=== PATIENT | female | born 1945 ===

== ENCOUNTER 2021-12-24 06:15 | Inpatient (IN) | payer MEDICARE, OTHER ==
[2021-12-24] MEDS ORDERED: NOREPINEPHRINE 8 MG/250 ML-D5W 250 ML ONE ×2 (06:37→13:33)
[2021-12-24 06:42] LABS: Actual Bicarbonate (HCO3a) 23.5 mEq/L (22-28); Analyzer IN Cardio ER; Base Excess (BEa) 2.2 mEq/L (-2.0 to +3.0); CO2 Tension 26.4 mmHg (35.0-45.0); Calcium, Ionized (arterial) 1.18 mmol/L (1.12-1.30); Carboxyhemoglobin (COHb) 0.1 gm% (0.0-3.0); Hemoglobin (Hb) 10.7 g/dL (12.0-16.0); O2 Tension (PaO2), arterial 118.8 mmHg (> 70.0); Potassium - ABG Lab 4.84 mmol/L (3.70-5.30); pH, Arterial 7.57 (7.35-7.45)
[2021-12-24 06:50] LABS: Puncture Site LRA
[2021-12-24 07:16] LABS: Mean Corpuscular HGB CONC 29.8 g/dL (32.0-36.0); Mean Corpuscular Volume 97.5 fl (78.0-98.0); Mean Platelet Volume 9.8 fL (7.4-10.4); Platelet Count 116 10x3/uL (130-400); Red Blood Cell (RBC) Count 3.43 mill/uL (4.20-5.40)
[2021-12-24 07:35] LABS: ALT (SGPT) 16 U/L (8-55); AST (SGOT) 15 U/L (5-34); Albumin 2.1 g/dL (3.4-4.8); Alkaline Phosphatase 105 U/L (40-110); Anion Gap 11 mmol/L (10-20); BUN (Urea Nitrogen) 50 mg/dL (9.8-20.1); Bilirubin, Total 0.9 mg/dL (0.2-1.2); Calc. Creatinine Clearance 0 mL/min (70-130); Calcium 9.1 mg/dL (7.8-10.44); Carbon Dioxide 29 mmol/L (23-31); Chloride 106 mmol/L (98-107); Estimated GFR 39; Globulin 2.5 g/dL (2.4-3.5); Glucose 97 mg/dL (83-110); Magnesium 2.2 mg/dL (1.6-2.6); Protein, Total 4.6 g/dL (5.8-8.1); Sodium 141 mmol/L (136-145)
[2021-12-24 07:57] LABS: CKMB 0.7 ng/mL (0-6.6)
[2021-12-24 08:00] LABS: SARS-CoV-2 NAA Rapid Test Not Detected (NotDetected)
[2021-12-24] MEDS ORDERED: Cefepime 2 GM VIAL ONE (08:11)
[2021-12-24 08:16] LABS: Band 33 % (5-11); Hypochromia SLIGHT = 6-15 cells (100X) (0-5/hpf); Lymphocytes 3 % (21-51); MDiff Complete? YES; Metamyelocyte 8 % (0-0); Monocytes 4 % (0-10); Myelocyte 1 % (0-0); Neutrophil 51 % (42-75); Nucleated RBC 6 % (0); Platelet Morphology Comment Appears Decreased; Polychromasia SLIGHT = 2-3 cells (100X) (0-2/hpf); Target Cells SLIGHT = 2-5 cells (100X) (0-1/hpf); Vacuoles SLIGHT; White Blood Cell (WBC) Count 9.6 10x3/uL (4.8-10.8)
[2021-12-24] MEDS ORDERED: Vancomycin 1.5 GRAM/300 ML BAG 1.5 GM in Premix Bag 1 BAG IVPB SCH (08:30)
[2021-12-24] MEDS ORDERED: Furosemide 40 MG/4 ML VIAL ONE (09:01)
[2021-12-24] MEDS ORDERED: Digoxin 0.5 MG/2 ML AMP ONE (09:16)
[2021-12-24] MEDS ORDERED: Acetaminophen 325 MG TAB PO PRN (09:58)
[2021-12-24] MEDS ORDERED: Enoxaparin Sodium 40 MG/0.4 ML SYRINGE SC SCH (10:30)
[2021-12-24 10:54] LABS: Free T4 (Free Thyroxine) 1.12 ng/dL (0.70-1.48); Thyroid Stimulating Hormone 0.3506 uIU/mL (0.35-4.94)
[2021-12-24] MEDS ORDERED: Lactated Ringer's 1,000 ML IV SCH (12:00)
[2021-12-24 12:36] LABS: Lactic Acid 7.4 mmol/L (0.5-2.2)
[2021-12-24 12:39] LABS: Troponin I 0.042 ng/mL (< 0.028)
[2021-12-24] MEDS ORDERED: Lactated Ringer's 500 ML IV SCH ×2 (13:00→18:00)
[2021-12-24] MEDS: NOREPINEPHRINE 8 MG/250 ML-D5W 250 ML IVPB SCH ×2 (13:35→19:07)
[2021-12-24 14:06] LABS: Actual Bicarbonate (HCO3a) 22.4 mEq/L (22-28); Base Excess (BEa) -3.2 mEq/L (-2.0 to +3.0); Calcium, Ionized (arterial) 1.22 mmol/L (1.12-1.30); Carboxyhemoglobin (COHb) 0.2 gm% (0.0-3.0); Hemoglobin (Hb) 10.4 g/dL (12.0-16.0); Potassium - ABG Lab 5.05 mmol/L (3.70-5.30); Puncture Site RRA; pH, Arterial 7.34 (7.35-7.45)
[2021-12-24 14:27] LABS: Lactic Acid 7.7 mmol/L (0.5-2.2)
[2021-12-24] MEDS: Lactated Ringer's 1,000 ML IV SCH ×2 (14:30→19:08)
[2021-12-24] MEDS: Fluconazole In NaCl,Iso-Osm 200 MG in Premix Bag 1 BAG IVPB SCH (14:58)
[2021-12-24] MEDS: Midodrine HCl 5 MG TAB PO SCH ×2 (15:01→20:31)
[2021-12-24] MEDS: Digoxin 0.5 MG/2 ML AMP SLOW IVP SCH ×2 (15:59→23:36)
[2021-12-24] MEDS ORDERED: Vancomycin 1 GM in Premix Bag 1 BAG IVPB SCH (21:00)
[2021-12-24] MEDS ORDERED: Famotidine 20 MG TAB PO SCH (21:00)
[2021-12-24] MEDS ORDERED: Cefepime 2 GM in Sodium Chloride 0.9% 100 ML IVPB SCH (21:00)
[2021-12-25] MEDS: Lactated Ringer's 1,000 ML IV SCH (01:26)
[2021-12-25 01:52] LABS: Bacteria/HPF None Seen HPF (None Seen); Bilirubin Negative (Negative); Blood, Urine 2+ (Negative); Clarity Turbid (Clear); Glucose, Urine (Dipstick) Normal (Negative); Ketone, Urine Negative (Negative); Leukocyte 75 Leu/uL (Negative); Nitrite Negative (Negative); Protein, Urine (Dipstick) 10 mg/dL (Neg-Trace); RBC/HPF 21-50 HPF (0-3); Specific Gravity, Urine 1.012 (1.002-1.036); Squamous Epithelial 0-3 HPF (0-3); Urobilinogen Normal mg/dL (Less than 2); pH, Urine 5.5 (5.0-9.0)
[2021-12-25] MEDS: NOREPINEPHRINE 8 MG/250 ML-D5W 250 ML IVPB SCH ×2 (02:13→14:06)
[2021-12-25 04:35] LABS: Anion Gap 13 mmol/L (10-20); BUN (Urea Nitrogen) 52 mg/dL (9.8-20.1); Calc. Creatinine Clearance 28 mL/min (70-130); Calcium 8.5 mg/dL (7.8-10.44); Carbon Dioxide 26 mmol/L (23-31); Chloride 108 mmol/L (98-107); Estimated GFR 32; Glucose 85 mg/dL (83-110); Potassium 5.1 mmol/L (3.5-5.1); Sodium 142 mmol/L (136-145)
[2021-12-25 05:07] LABS: Hemoglobin 9.1 g/dL (12.0-16.0); Mean Corpuscular HGB CONC 29.1 g/dL (32.0-36.0); Mean Corpuscular Hemoglobin 28.7 pg (27.0-31.0); Mean Corpuscular Volume 98.6 fl (78.0-98.0); Mean Platelet Volume 10.2 fL (7.4-10.4); Platelet Count 111 10x3/uL (130-400); RBC Distribution Width 19.6 % (11.5-14.5); Red Blood Cell (RBC) Count 3.17 mill/uL (4.20-5.40); White Blood Cell (WBC) Count 15.1 10x3/uL (4.8-10.8)
[2021-12-25 05:08] LABS: Band 31 % (5-11); Hypochromia SLIGHT = 6-15 cells (100X) (0-5/hpf); Lymphocytes 1 % (21-51); MDiff Complete? YES; Monocytes 12 % (0-10); Neutrophil 56 % (42-75); Nucleated RBC 4 % (0); Platelet Morphology Comment Appears Decreased
[2021-12-25] MEDS ORDERED: Hydrocortisone Sod Succ/PF 100 mg/2 ml Vial IVP SCH (07:45)
[2021-12-25] MEDS ORDERED: Enoxaparin Sodium 40 MG/0.4 ML SYRINGE SC SCH (09:00)
[2021-12-25] MEDS ORDERED: Enoxaparin Sodium 30 MG/0.3 ML SYRINGE SC SCH (09:00)
[2021-12-25] MEDS: Albumin 25% 25 GM/100 ML BOT IVPB SCH ×3 (09:12→20:09)
[2021-12-25] MEDS: Famotidine 20 MG TAB PO SCH (09:13)
[2021-12-25] MEDS: Midodrine HCl 5 MG TAB PO SCH ×3 (09:13→20:09)
[2021-12-25 09:54] LABS: Vancomycin, Random 14.6 ug/mL (See Comment)
[2021-12-25 10:26] LABS: Troponin I 0.055 ng/mL (< 0.028)
[2021-12-25] MEDS ORDERED: Vancomycin HCl 500 MG in Sodium Chloride 0.9% 100 ML IVPB SCH (11:00)
[2021-12-25] MEDS: Hydrocortisone Sod Succ/PF 100 mg/2 ml Vial IVP SCH ×2 (11:36→17:38)
[2021-12-25] MEDS: Fluconazole In NaCl,Iso-Osm 200 MG in Premix Bag 1 BAG IVPB SCH (14:07)
[2021-12-25 14:08] VITALS: BP 104/58
[2021-12-25] MEDS ORDERED: Cefepime 1 GM in Sodium Chloride 0.9% 100 ML IVPB SCH (21:00)
[2021-12-26] MEDS: Morphine 4 MG/ML VIAL SLOW IVP PRN ×3 (00:43→05:37)
[2021-12-26] MEDS: Hydrocortisone Sod Succ/PF 100 mg/2 ml Vial IVP SCH (01:01)
[2021-12-26] MEDS: Albumin 25% 25 GM/100 ML BOT IVPB SCH (01:29)
[2021-12-26 05:09] VITALS: BMI 25.6
[2021-12-26] MEDS: Famotidine 20 MG TAB PO SCH (08:20)
[2021-12-26 08:27] VITALS: TEMP 97.5
== END 2021-12-26 15:00 | disposition expired | DRG 871 ==
LOC: ERS 06:15 → ERHOLD 08:18 → CCU 10:33 → T4-B 12-26 06:28
PROVIDERS: ADMIT Hospitalist; ATTEND Internal Medicine
PROC: 3E03329 Introduction of Other Anti-infective into Peripheral Vein, Percutaneous Approach (ICD-10-PCS; principal; 2021-12-24)
PROC: 5A09357 Assistance with Respiratory Ventilation, Less than 24 Consecutive Hours, Continuous Positive Airway Pressure (ICD-10-PCS; 2021-12-24)
PROC: 3E033XZ Introduction of Vasopressor into Peripheral Vein, Percutaneous Approach (ICD-10-PCS; 2021-12-24)
PROC: 06HY33Z Insertion of Infusion Device into Lower Vein, Percutaneous Approach (ICD-10-PCS; 2021-12-24)
PROC: 30233J1 Transfusion of Nonautologous Serum Albumin into Peripheral Vein, Percutaneous Approach (ICD-10-PCS; 2021-12-25)
DX: A41.9 Sepsis, unspecified organism (principal); G93.41 Metabolic encephalopathy; J18.9 Pneumonia, unspecified organism; J96.01 Acute respiratory failure with hypoxia; R65.21 Severe sepsis with septic shock; I48.92 Unspecified atrial flutter; I48.19 Other persistent atrial fibrillation; N17.9 Acute kidney failure, unspecified; E44.0 Moderate protein-calorie malnutrition; J44.0 Chronic obstructive pulmonary disease with (acute) lower respiratory infection; Z51.5 Encounter for palliative care; F17.210 Nicotine dependence, cigarettes, uncomplicated; Z20.822 Contact with and (suspected) exposure to COVID-19; R57.1 Hypovolemic shock; Z88.0 Allergy status to penicillin; Z68.25 Body mass index [BMI] 25.0-25.9, adult
CPT/HCPCS: 36415; 36416; 36600; 71045; 80048; 80162; 80202; 81001; 82533; 82553; 82805; 83605; 83735; 83880; 84145; 84439; 84443; 84484; 85025; 87081; 87086; 87149; 93005; 93306; 94660; J0692; J1160; J1450; J1650; J1720; J1940; J2270; J3370; J3490; J7120; P9047; U0002